=== PATIENT | female | born 1970 ===

== ENCOUNTER 2018-12-30 14:45 | Inpatient (IN) | payer OTHER ==
[~2018-12-30] VITALS: Ht 154.9 cm; Wt 69.4 kg
[2019-01-02] MEDS ORDERED: ULTRAM50 MG PO (09:17)
[2019-01-02] MEDS ORDERED: COLACE100 MG PO (09:17)
== END 2019-01-02 13:13 | disposition home or self-care (01) | DRG 743 ==
LOC: O/R 14:45 → SURG-SUITE 01-01 06:00 → O/R 01-01 06:00 → SURH 01-01 09:45 → SURG-SUITE 01-01 13:37 → SURH 01-01 14:45 → SURG-SUITE 01-02 13:13
PROVIDERS: ADMIT Obstetrics & Gynecology
PROC: 0UT74ZZ Resection of Bilateral Fallopian Tubes, Percutaneous Endoscopic Approach (ICD-10-PCS; 2019-01-01)
PROC: 0UT14ZZ Resection of Left Ovary, Percutaneous Endoscopic Approach (ICD-10-PCS; 2019-01-01)
PROC: 0UT94ZZ Resection of Uterus, Percutaneous Endoscopic Approach (ICD-10-PCS; principal; 2019-01-01 09:45)
DX: D25.1 Intramural leiomyoma of uterus (principal); D25.2 Subserosal leiomyoma of uterus; N93.8 Other specified abnormal uterine and vaginal bleeding; N72 Inflammatory disease of cervix uteri; N81.11 Cystocele, midline